=== PATIENT | female | born 1970 | race Caucasian/White ===

== ENCOUNTER 2022-11-13 13:08 | Emergency (ER) | payer OTHER ==
[2022-11-13 13:37] VITALS: BP 152/87; PULSE 71; RESP 18; TEMP 98.3; BMI 27.3
[2022-11-13 15:01] LABS: HEMATOCRIT 46.1 % (32.4-45.2); HEMOGLOBIN 15.1 G/dL (10.7-15.3); MCH 31.2 pg (25.7-33.7); MCHC 32.8 g/dl (32.0-36.0); MEAN CELL VOLUME 95.3 fl (80-96); MEAN PLT VOLUME 8.3 fl (7.5-11.1); PLATELET COUNT 278.9 10^3/uL (134-434); RBC 4.84 10^6/uL (3.60-5.2); RDW 13.4 % (11.6-15.6); WHITE BLOOD COUNT 8.2 10^3/uL (4.0-10.8)
[2022-11-13 15:03] LABS: PLATELET ESTIMATE ADEQUATE
[2022-11-13 15:08] LABS: ALBUMIN 4.6 g/dl (3.4-5.0); ALK PHOS 90 U/L (45-117); ANION GAP 9 MMOL/L (8-16); BLOOD UREA NITROGEN 8.4 mg/dl (7-18); CALCIUM 9.4 mg/dl (8.5-10.1); CHLORIDE 104 mmol/L (98-107); CO2 29 mmol/L (21-32); CREATININE 0.6 mg/dl (0.6-1.3); GLUCOSE,RANDOM 117 mg/dl (74-106); POTASSIUM 4.3 mmol/L (3.5-5.1); SGOT/AST 28.6 U/L (15-37); SGPT/ALT 45.1 U/L (7-52); SODIUM 142 mmol/L (136-145); TOT PROT 7.3 g/dl (6.4-8.2)
[2022-11-13 16:04] LABS: LIPASE 228 U/L (73-393)
[2022-11-13 16:09] LABS: BILIRUBIN,TOTAL 0.4 mg/dL (0.2-1)
== END 2022-11-13 15:55 | disposition home or self-care (01) ==
LOC: FER 13:08
DX: R10.11 Right upper quadrant pain (principal); R10.12 Left upper quadrant pain; K80.20 Calculus of gallbladder without cholecystitis without obstruction; N20.0 Calculus of kidney
CPT/HCPCS: 36415; 71046-TC-FY; 74176-TC; 76705-TC; 80053; 81003; 83690; 84484; 85027; 93005; 99285-25

== ENCOUNTER 2022-11-22 04:17 | Day surgery (SDC) | payer OTHER ==
[2022-11-17 11:44] VITALS: BMI 27.3
[2022-11-22 07:37] VITALS: RESP 20
[2022-11-22] MEDS ORDERED: ONDANSETRON 4 MG/2 ML VIAL ONE (08:53)
[2022-11-22] MEDS ORDERED: MIDAZOLAM HCL 2 MG/2 ML SINGLE DOSE VIAL ONE ×3 (08:53→09:26)
[2022-11-22 11:11] VITALS: BP 104/54; PULSE 80; TEMP 97.1
== END 2022-11-22 12:17 | disposition home or self-care (01) ==
LOC: JASU-SURG 04:17
PROVIDERS: ATTEND Urology
PROC: 0TF3XZZ Fragmentation in Right Kidney Pelvis, External Approach (ICD-10-PCS; principal; 2022-11-22 09:00)
DX: N20.0 Calculus of kidney (principal)

== ENCOUNTER 2022-11-23 20:14 | Emergency (ER) | payer OTHER ==
[2022-11-23 20:20] VITALS: BP 153/87; PULSE 76; RESP 18; TEMP 97.9; BMI 27.3
== END 2022-11-23 20:35 | disposition left against medical advice (07) ==
LOC: JER 20:14
DX: M54.9 Dorsalgia, unspecified (principal)
CPT/HCPCS: 99281-25

== ENCOUNTER 2022-11-23 23:51 | Inpatient (IN) | payer OTHER ==
[2022-11-24] MEDS ORDERED: KETOROLAC TROMETHAMINE 15 MG/ML VIAL IVPUSH ONE (00:23)
[2022-11-24] MEDS ORDERED: SODIUM CHLORIDE 0.9% 1000 ML INFUS.BAG IV ONE (00:23)
[2022-11-24] MEDS ORDERED: KETOROLAC TROMETHAMINE 15 MG/ML VIAL ONE (00:57)
[2022-11-24 01:20] LABS: EPI CELLS >36 /uL (0-25.1); HYALINE CASTS 0 /uL (0-3.1); URINE APPEARANCE CLEAR; URINE BACTERIA 335 /uL (0-1359); URINE BILIRUBIN NEGATIVE (NEGATIVE); URINE COLOR YELLOW; URINE GLUCOSE (UA) NEGATIVE (NEGATIVE); URINE KETONE NEGATIVE (NEGATIVE); URINE LEUK ESTERASE 2+ (NEGATIVE); URINE NITRITE NEGATIVE (NEGATIVE); URINE PROTEIN NEGATIVE (NEGATIVE); URINE RBC 5 /uL (0-23.9); URINE WBC 35 /uL (0-25.8)
[2022-11-24 01:29] LABS: BASO % 0.7 % (0-2.0); EOS % 2.5 % (0-4.5); HEMATOCRIT 40.9 % (32.4-45.2); LYMPH % 20.8 % (8-40); MCH 31.2 pg (25.7-33.7); MCHC 34.2 g/dl (32.0-36.0); MEAN PLT VOLUME 8.2 fl (7.5-11.1); MONO % 5.4 % (3.8-10.2); NEUT % 70.6 % (42.8-82.8); PLATELET COUNT 282 10^3/uL (134-434); RBC 4.49 M/mm3 (3.60-5.2); RDW 12.9 % (11.6-15.6); WHITE BLOOD COUNT 6.6 K/mm3 (4.0-10.0)
[2022-11-24 01:48] LABS: POTASSIUM 4.1 mmol/L (3.5-5.1)
[2022-11-24 01:50] LABS: ALBUMIN 3.8 g/dl (3.4-5.0); BLOOD UREA NITROGEN 9.6 mg/dL (7-18); CALCIUM 8.9 mg/dL (8.5-10.1)
[2022-11-24 01:53] LABS: CREATININE 0.7 mg/dL (0.55-1.3)
[2022-11-24 01:55] LABS: BILIRUBIN,TOTAL 0.9 mg/dL (0.2-1); TOT PROT 7.4 g/dl (6.4-8.2)
[2022-11-24] MEDS ORDERED: PIPERACILLIN/TAZOB 3.375 GM 3.375 GM in DEXTROSE 5%-WATER - 50 ML IVPB ONE (02:05)
[2022-11-24] MEDS ORDERED: PIPERACILLIN/TAZOBACTAM 3.375 GM VIAL IVPB ONE (02:06)
[2022-11-24] MEDS: CEFAZOLIN 1 GM in DEXTROSE 5%-WATER - 50 ML IVPB SCH ×2 (10:17→17:40)
[2022-11-24] MEDS ORDERED: ACETAMINOPHEN 1000 MG/100 ML BAG IVPB PRN (12:17)
[2022-11-24] MEDS ORDERED: KETOROLAC TROMETHAMINE 30 MG/1 ML VIAL IVPUSH PRN (12:17)
[2022-11-24] MEDS: DEXTROSE 5%-NORMAL SALINE 1,000 ML IV SCH (13:36)
[2022-11-24] MEDS ORDERED: diazePAM CARPU-JECT 10 MG/2 ML DISP.SYRIN IVPUSH ONE (13:39)
[2022-11-24] MEDS ORDERED: ceFAZolin SODIUM 1 GM VIAL ONE (17:06)
[2022-11-24 23:44] VITALS: BMI 26.5
[2022-11-25] MEDS: CEFAZOLIN 1 GM in DEXTROSE 5%-WATER - 50 ML IVPB SCH (02:29)
[2022-11-25] MEDS ORDERED: ALBUTEROL SO4 HFA INHALER IH PRN (07:56)
[2022-11-25 09:45] LABS: INR 1.06 (0.83-1.09); PROTHROMBIN TIME (PATIENT) 12.3 SEC (9.7-13.0)
[2022-11-25] MEDS: DEXTROSE 5%-NORMAL SALINE 1,000 ML IV SCH ×2 (09:58→17:57)
[2022-11-25] MEDS: CEFTRIAXONE 1 GM in DEXTROSE 5%-WATER - 50 ML IVPB SCH (09:59)
[2022-11-25 10:05] LABS: ALBUMIN 3.2 g/dl (3.4-5.0); MAGNESIUM 2.2 mg/dL (1.8-2.4)
[2022-11-25 10:08] LABS: PHOSPHOROUS 3.1 mg/dL (2.5-4.9)
[2022-11-25 10:09] LABS: TOT PROT 6.2 g/dl (6.4-8.2)
[2022-11-25] MEDS: BUDESONIDE/FORMETEROL FUMARATE 80/4.5 mcg INHALER IH SCH ×2 (10:09→23:44)
[2022-11-25 10:10] LABS: BILIRUBIN,TOTAL 0.7 mg/dL (0.2-1)
[2022-11-25 10:39] LABS: BASO % 1.2 % (0-2.0); HEMOGLOBIN 13.7 GM/dL (10.7-15.3); LYMPH % 31.5 % (8-40); MCH 31.4 pg (25.7-33.7); MCHC 34.2 g/dl (32.0-36.0); MEAN CELL VOLUME 91.9 fl (80-96); MEAN PLT VOLUME 8.1 fl (7.5-11.1); MONO % 7.7 % (3.8-10.2); NEUT % 53.6 % (42.8-82.8); PLATELET COUNT 251 10^3/uL (134-434); RBC 4.35 M/mm3 (3.60-5.2); WHITE BLOOD COUNT 4.8 K/mm3 (4.0-10.0)
[2022-11-25 12:11] LABS: BLOOD UREA NITROGEN 6.9 mg/dL (7-18); CALCIUM 8.6 mg/dL (8.5-10.1); CREATININE 0.6 mg/dL (0.55-1.3)
[2022-11-26] MEDS: BUDESONIDE/FORMETEROL FUMARATE 80/4.5 mcg INHALER IH SCH ×2 (09:12→21:25)
[2022-11-26] MEDS: CEFTRIAXONE 1 GM in DEXTROSE 5%-WATER - 50 ML IVPB SCH ×2 (09:13→10:28)
[2022-11-26 09:20] LABS: INR 1.08 (0.83-1.09); PROTHROMBIN TIME (PATIENT) 12.5 SEC (9.7-13.0)
[2022-11-26 09:22] LABS: EOS % 6.6 % (0-4.5); HEMATOCRIT 39.8 % (32.4-45.2); HEMOGLOBIN 13.3 GM/dL (10.7-15.3); LYMPH % 33.3 % (8-40); MCH 30.9 pg (25.7-33.7); MCHC 33.3 g/dl (32.0-36.0); MEAN CELL VOLUME 92.9 fl (80-96); MONO % 8.3 % (3.8-10.2); NEUT % 50.8 % (42.8-82.8); PLATELET COUNT 262 10^3/uL (134-434); RBC 4.29 M/mm3 (3.60-5.2); RDW 12.8 % (11.6-15.6); WHITE BLOOD COUNT 4.6 K/mm3 (4.0-10.0)
[2022-11-26 09:48] LABS: POTASSIUM 3.7 mmol/L (3.5-5.1)
[2022-11-26 09:55] LABS: ALBUMIN 3.2 g/dl (3.4-5.0); BLOOD UREA NITROGEN 8.3 mg/dL (7-18); CALCIUM 8.4 mg/dL (8.5-10.1)
[2022-11-26 09:58] LABS: CREATININE 0.5 mg/dL (0.55-1.3)
[2022-11-26 09:59] LABS: BILIRUBIN,TOTAL 0.6 mg/dL (0.2-1); TOT PROT 6.3 g/dl (6.4-8.2)
[2022-11-26] MEDS: DEXTROSE 5%-NORMAL SALINE 1,000 ML IV SCH (10:34)
[2022-11-26] MEDS ORDERED: BUPIVACAINE HCL/PF 0.25% (2.5MG/ML) 10 ML VIAL ONE (13:10)
[2022-11-26] MEDS ORDERED: BUPIVACAINE HCL/PF 0.25% (2.5MG/ML) 10 ML VIAL IJ ONE ×2 (13:18→17:47)
[2022-11-26] MEDS ORDERED: MIDAZOLAM HCL 2 MG/2 ML SINGLE DOSE VIAL ONE (14:31)
[2022-11-26] MEDS ORDERED: PROPOFOL 40 ML ONE (14:31)
[2022-11-26] MEDS ORDERED: LIDOCAINE HCL/PF 2% SDV 5ML VIAL ONE (14:33)
[2022-11-26] MEDS ORDERED: SUCCINYLCHOLINE CHLORIDE 200 MG/10 ML SYRINGE ONE (14:33)
[2022-11-26] MEDS ORDERED: ROCURONIUM BROMIDE 50 MG/5 ML SYRINGE ONE ×2 (14:33→16:20)
[2022-11-26] MEDS ORDERED: SODIUM CHLORIDE 0.9% P/F 10 ML VIAL IJ ONE (14:33)
[2022-11-26] MEDS ORDERED: DEXAMETHASONE SOD PHOSPHATE 4 MG/1 ML VIAL ONE (14:33)
[2022-11-26] MEDS ORDERED: METOCLOPRAMIDE HCL INJECTION 10 MG/2 ML VIAL ONE (14:33)
[2022-11-26] MEDS ORDERED: ONDANSETRON 4 MG/2 ML VIAL ONE ×2 (14:33→17:52)
[2022-11-26] MEDS ORDERED: KETOROLAC TROMETHAMINE 30 MG/1 ML VIAL ONE (14:33)
[2022-11-26] MEDS ORDERED: cefOXitin SODIUM 1 GM VIAL (RESTRICTED TO ID) IVPB ONE ×2 (14:38→15:00)
[2022-11-26] MEDS ORDERED: cefOXitin SODIUM 2 GM VIAL (RESTRICTED TO ID) IVPB ONE (14:39)
[2022-11-26] MEDS ORDERED: HEPARIN NA (PORCINE) 5,000 UNITS/ML 1ML VIAL ONE (14:39)
[2022-11-26] MEDS ORDERED: ALBUTEROL SO4 HFA INHALER IH ONE (15:02)
[2022-11-26] MEDS ORDERED: HYDROmorphone HCl 2 MG/ML VIAL ONE (15:12)
[2022-11-26] MEDS ORDERED: INDOCYANINE GREEN 25 MG/10 ML VIAL IVPUSH ONE (16:14)
[2022-11-26] MEDS ORDERED: SUGAMMADEX SODIUM 200 MG/2 ML VIAL ONE (16:21)
[2022-11-26] MEDS ORDERED: GLYCOPYRROLATE 0.2 MG/1 ML VIAL ONE (17:52)
[2022-11-26] MEDS ORDERED: NEOSTIGMINE METHYLSULFATE 0.5 MG/1 ML - 10 ML MDV ONE (17:52)
[2022-11-26] MEDS ORDERED: ONDANSETRON 4 MG/2 ML VIAL IVPUSH PRN ×2 (18:11→18:38)
[2022-11-26] MEDS ORDERED: LACTATED RINGERS SOLUTION 1,000 ML IV SCH (18:15)
[2022-11-26] MEDS ORDERED: oxyCODONE HCL 5 MG TABLET PO PRN (18:38)
[2022-11-26] MEDS ORDERED: ALBUTEROL SO4 HFA INHALER IH PRN (18:38)
[2022-11-26] MEDS: LACTATED RINGERS SOLUTION 1,000 ML IV SCH (19:40)
[2022-11-26] MEDS: ACETAMINOPHEN 500 MG TABLET (FP) PO SCH (21:26)
[2022-11-27] MEDS: ACETAMINOPHEN 500 MG TABLET (FP) PO SCH ×2 (01:40→06:25)
[2022-11-27] MEDS: LACTATED RINGERS SOLUTION 1,000 ML IV SCH (06:58)
[2022-11-27 09:35] LABS: BASO % 0.1 % (0-2.0); HEMATOCRIT 38.1 % (32.4-45.2); HEMOGLOBIN 12.6 GM/dL (10.7-15.3); LYMPH % 16.8 % (8-40); MCHC 33.2 g/dl (32.0-36.0); MEAN CELL VOLUME 93.5 fl (80-96); MEAN PLT VOLUME 8.2 fl (7.5-11.1); MONO % 7.6 % (3.8-10.2); NEUT % 75.5 % (42.8-82.8); PLATELET COUNT 275 10^3/uL (134-434); RBC 4.07 M/mm3 (3.60-5.2); RDW 12.7 % (11.6-15.6)
[2022-11-27] MEDS: BUDESONIDE/FORMETEROL FUMARATE 80/4.5 mcg INHALER IH SCH (09:47)
[2022-11-27 09:56] LABS: POTASSIUM 4.1 mmol/L (3.5-5.1)
[2022-11-27 09:58] LABS: CALCIUM 8.5 mg/dL (8.5-10.1)
[2022-11-27 09:59] LABS: ALBUMIN 3.1 g/dl (3.4-5.0); BLOOD UREA NITROGEN 5.5 mg/dL (7-18); MAGNESIUM 1.8 mg/dL (1.8-2.4)
[2022-11-27] MEDS ORDERED: APIXABAN 5 MG TABLET PO SCH (10:00)
[2022-11-27] MEDS ORDERED: CEFTRIAXONE 1 GM in DEXTROSE 5%-WATER - 50 ML IVPB SCH (10:00)
[2022-11-27 10:02] LABS: CREATININE 0.5 mg/dL (0.55-1.3)
[2022-11-27 10:03] LABS: BILIRUBIN,TOTAL 0.6 mg/dL (0.2-1); TOT PROT 6.2 g/dl (6.4-8.2)
[2022-11-27 11:28] VITALS: BP 128/70; PULSE 71; RESP 18; TEMP 98.5
== END 2022-11-27 11:37 | disposition home or self-care (01) | DRG 419 ==
LOC: FER 23:51 → FM/S 11-24 05:13 → JERBED 11-24 11:48 → J8W 11-24 20:57
PROVIDERS: ADMIT Internal Medicine; ATTEND Nurse Practitioner Acute Care
PROC: 8E0W4CZ Robotic Assisted Procedure of Trunk Region, Percutaneous Endoscopic Approach (ICD-10-PCS; 2022-11-26)
PROC: 0FT44ZZ Resection of Gallbladder, Percutaneous Endoscopic Approach (ICD-10-PCS; principal; 2022-11-26 12:00)
DX: K80.00 Calculus of gallbladder with acute cholecystitis without obstruction (principal); K82.A1 Gangrene of gallbladder in cholecystitis; R74.8 Abnormal levels of other serum enzymes; Z86.718 Personal history of other venous thrombosis and embolism; Z87.442 Personal history of urinary calculi
CPT/HCPCS: 0241U-QW; 36415; 74176-TC; 74182-TC; 76705-TC; 80048; 80053; 81003; 83690; 83735; 84100; 85025; 85610; 86850; 86900; 86901; 87086; 88304-TC; 94760; 99285-25; J1644